=== PATIENT | female | born 1940 | race Caucasian/White ===

== ENCOUNTER 2018-05-29 15:43 | Emergency (ER) | payer MEDICARE, OTHER ==
[~2018-05-29] VITALS: Ht 157.5 cm; Wt 86.0 kg
[~2018-05-29 15:43] MED LIST: DIOVAN HCT160 MG/25 PO; KEFLEX250 MG PO; LOPID600 MG PO; MEDDOSEPAK PO; ZANTAC 150 PO; [UNRECOGNIZED DRUG - OTHER] OR
[2018-05-29] MEDS ORDERED: CELEBREX100 M1 PO (15:57)
[2018-05-29] MEDS ORDERED: METFORMIN500 M2 PO (15:57)
[2018-05-29] MEDS ORDERED: AMLODIPINE5 MG PO (15:58)
[2018-05-29 16:46] LABS: HEMATOCRIT 35.7 % (37.0-47.0); HEMOGLOBIN 11.8 g/dl (12.0-16.0); IMMATURE GRANULOCYTES 0.5 % (0.0-5.0); MEAN CELL VOLUME 90.2 fL CALC (80.0-100.0); MEAN CORPUSCULAR HGB 29.8 pG CALC (26.0-32.0); MEAN CORPUSCULAR HGB CONC 33.1 g/L CALC (32.0-36.0); NEUT# 9.08 thou/uL (2.00-7.15); RED BLOOD COUNT 3.96 mill/uL (4.20-5.60); RED CELL DISTRI WIDTH 14.3 % (11.5-15.5)
[2018-05-29 17:38] LABS: ALBUMIN 4.5 g/dL (3.2-5.0); ALKALINE PHOSPHATASE 83 u/l (38-126); ANION GAP 16 (6-22 (CALC)); BILIRUBIN, TOTAL 0.6 mg/dL (0.0-1.4); BUN 14 mg/dL (8-23); BUN/CREATININE RATIO 21 (12-20 (CALC)); CARBON DIOXIDE 22 mmol/l (22-30); CHLORIDE 105 mmol/l (95-108); CREATININE 0.7 mg/dL (0.5-1.0); GFR > 60 ML/MIN (>=60 (CALC)); GFR FOR AFR.AMER. > 60 ML/MIN (>=60 (CALC)); POTASSIUM 3.9 mmol/l (3.5-5.1); SGOT/AST 21 u/l (9-36); SODIUM 140 mmol/l (137-146); TOTAL PROTEIN 7.1 g/dL (6.3-8.2)
[2018-05-29] MEDS ORDERED: CEPHALEXIN500 M1 PO (17:41)
[2018-05-29] MEDS ORDERED: ROBITUSSIN AC10 ML PO (17:41)
[2018-05-29] MEDS ORDERED: MEDDOSEPAK PO (17:41)
[2018-05-29 17:47] VITALS: BP 136/86
== END 2018-05-29 17:55 | disposition home or self-care (01) ==
LOC: ED 15:43
PROVIDERS: Emergency Medicine
DX: J06.9 Acute upper respiratory infection, unspecified (principal); I10 Essential (primary) hypertension; E11.9 Type 2 diabetes mellitus without complications

== ENCOUNTER 2022-02-14 09:01 | Emergency (ER) | payer MEDICARE, OTHER ==
[2022-02-14] VITALS (7 sets, daily range): BP systolic 136–149; BP diastolic 77–89
[~2022-02-14] VITALS: Ht 157.5 cm; Wt 77.0 kg
[~2022-02-14 09:01] MED LIST changes: +AMLODIPINE5 MG PO; +CELEBREX100 M1 PO; +CEPHALEXIN500 M1 PO; +METFORMIN500 M2 PO; +ROBITUSSIN AC10 ML PO
[2022-02-14 11:25] LABS: HEMATOCRIT 35.8 % (37.0-47.0); HEMOGLOBIN 12.2 g/dl (12.0-16.0); IMMATURE GRANULOCYTES 0.2 % (0.0-5.0); MEAN CORPUSCULAR HGB CONC 34.1 g/dL CAL (32.0-36.0); NEUT# 2.74 thou/uL (2.00-7.15); RED BLOOD COUNT 4.07 mill/uL (4.20-5.60); RED CELL DISTRI WIDTH 13.3 % (11.5-15.5)
[2022-02-14 11:38] LABS: ALBUMIN 4.7 g/dL (3.2-5.0); ALKALINE PHOSPHATASE 78 u/l (38-126); ANION GAP 14 (6-22 (CALC)); BILIRUBIN, TOTAL 0.5 mg/dL (0.0-1.4); BUN 20 mg/dL (8-23); BUN/CREATININE RATIO 30 (12-20 (CALC)); CARBON DIOXIDE 22 mmol/l (22-30); CHLORIDE 110 mmol/l (95-108); CREATININE 0.7 mg/dL (0.5-1.0); GFR FOR AFR.AMER. > 60 ML/MIN (>=60 (CALC)); GFR OTHER RACES > 60 ML/MIN (>=60 (CALC)); POTASSIUM 4.4 mmol/l (3.5-5.1); SODIUM 142 mmol/l (137-146); TOTAL PROTEIN 7.6 g/dL (6.3-8.2)
[2022-02-14 11:41] LABS: SGOT/AST 43 u/l (9-36)
== END 2022-02-14 14:18 | disposition home or self-care (01) ==
LOC: ED 09:01
PROVIDERS: Emergency Medicine
DX: R00.2 Palpitations (principal); I10 Essential (primary) hypertension; E11.9 Type 2 diabetes mellitus without complications; E78.5 Hyperlipidemia, unspecified; M06.9 Rheumatoid arthritis, unspecified; E03.9 Hypothyroidism, unspecified; Z79.84 Long term (current) use of oral hypoglycemic drugs